=== PATIENT | female | born 1995 | race Caucasian/White ===

== ENCOUNTER 2020-01-21 22:18 | Inpatient (IN) | payer MEDICAID ==
[2020-01-21 22:45] LABS: APPEARANCE,URINE CLOUDY; BILIRUBIN,URINE NEGATIVE (NEGATIVE); COLOR,URINE YELLOW; GLUCOSE, URINE NEGATIVE (NEGATIVE); KETONES,URINE NEGATIVE (NEGATIVE); LEUKOCYTE ESTERASE,URINE LARGE (NEGATIVE); NITRITE,URINE NEGATIVE (NEGATIVE); PROTEIN,URINE 30 mg/dL (NEGATIVE); URINE SPECIFIC GRAVITY 1.019; UROBILINOGEN,URINE NEGATIVE mg/dL (<2.0)
[2020-01-21] MEDS ORDERED: RINGERS SOLUTION,LACTATED 1,000 ML IV PRN (23:05)
[2020-01-21 23:06] LABS: URINE AMPHETAMINES SCREEN NEGATIVE; URINE BARBITURATES SCREEN NEGATIVE; URINE BENZODIAZEPINES SCREEN NEGATIVE; URINE COCAINE SCREEN NEGATIVE; URINE MARIJUANA (THC) SCREEN NEGATIVE; URINE METHADONE SCREEN NEGATIVE; URINE PHENCYCLIDINE SCREEN NEGATIVE
[2020-01-21] MEDS ORDERED: RINGERS SOLUTION,LACTATED 1,000 ML IV ONE (23:34)
--- NOTE | 2020-01-21 23:51 | Admission Physical ---
Datetime Report Generated by CPN: 01/21/2020 23:51 CURRENT ADMISSION Chief Complaint: Uterine Contractions Indication for Induction: Not Applicable Admit Impression : Term, Intrauterine Admit Plan: Admit to Unit ALLERGIES Medication Allergies: No Latex: No Latex Allergies OBSTETRICAL HISTORY EDC: 01/19/2020 00:00 : 1 Para: 0 Gestational Diabetes: No Rh Sensitization: No Incompetent Cervix: No RAINA: No Infertility: No ART Treatment: No Uterine Anomaly: No IUGR: No Hx Previous C/S: No Macrosomia: No Hx Loss/Stillborn: No PIH: No Hx : No Placenta Previa/Abruption: No Depression/PP Depression: No PTL/PROM: No Post Hemorrhage: No Current Procedures: Ultrasound Obstetrical History Comments: G1- current SEE RECORDS Alcohol: No Marijuana : No Cocaine: No Other Illicit Drugs: No Cigarettes: Never Smoker. 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 Surgery: No Heart Disease: No Hosp/Surgery: No Autoimmune Disorder: No Anesthetic Complications: No Kidney Disease: Yes Abnormal Pap Smear: No Neuro/Epilepsy: No Psychiatric Disorders: No Other Medical Diseases: No Hepatitis/Liver Disease: No Significant Family History: No Varicosities/Phlebitis: No Trauma/Violence : No Thyroid Dysfunction: No Medical History Comments: UTI this INFECTIOUS HISTORY Gonorrhea: No Genital Herpes: No Chlamydia: No Tuberculosis: No Syphilis: No Hepatitis: No HIV/AIDS Exposure: No Rash or Viral Illness: No HPV: No PHYSICAL EXAM General: Normal HEENT: Normal Neurologic: Normal Thyroid: Normal Heart: Normal Lungs: Normal Breast: Deferred Back: Normal Abdomen: Normal Genitourinary Exam: Normal Extremities: Normal DTRs: Normal Pelvic Type: Adequate Vital Signs: Reviewed VAGINAL EXAM Dilatation: 3 Effacement: 90 Station: 0 MEMBRANES Pooling: Positive Membranes: Intact FETUS A EGA: 40.2 Monitoring: External US FHR- Baseline: 150 Variability: Minimal - Undetectable to <=5bpm Decelerations: None FHR Category: Category II Presentation: Vertex Admit Comment: No hsv lesions. Will give fluids and see if strip improves. PLANS FOR LABOR AND DELIVERY Labor and Delivery: None Pain Management: Epidural Feeding Preference: Breast Circumcision: Yes INFORMED CONSENT Signature: with User ID: [email or web address]
[2020-01-22] MEDS ORDERED: PENICILLIN G-K 5 MILLION UNIT VIAL ONE ×2 (00:15→03:55)
[2020-01-22] MEDS ORDERED: PENICILLIN G POTASSIUM 5,000,000 UNIT in DEXTROSE 5%-WATER 100 ML IV ONE (00:30)
[2020-01-22 00:33] LABS: HEMATOCRIT 30.6 % (36.0-47.0); HEMOGLOBIN 10.6 g/dL (12.0-15.5); MEAN CORPUSCULAR HEMOGLOBIN 30.3 pg (27.0-33.4); MEAN CORPUSCULAR HGB CONC 34.7 g/dL (32.0-36.0); MEAN CORPUSCULAR VOLUME 87 fl (80-97); PLATELET COUNT 247 10^3/uL (150-450); RED BLOOD COUNT 3.51 10^6/uL (3.72-5.28); RED CELL DISTRIBUTION WIDTH 15.6 % (11.5-14.0); WHITE BLOOD COUNT 5.3 10^3/uL (4.0-10.5)
[2020-01-22] MEDS ORDERED: MISOPROSTOL 0.2 MG TABLET ONE (00:54)
[2020-01-22] MEDS ORDERED: EPHEDRINE SULFATE INJ 50 MG/1 ML AMPULE ONE (00:54)
[2020-01-22] MEDS ORDERED: OXYTOCIN 10 UNIT/ML VIAL ONE (00:54)
[2020-01-22] MEDS ORDERED: FENTANYL/BUPIVACAINE/NS/PF 300 MCG/150 ML RTUINJ EPI ONE (00:55)
[2020-01-22] MEDS ORDERED: LIDOCAINE 1% INJ-PF (10 MG/ML) 30 ML SDV ONE (00:55)
[2020-01-22] MEDS ORDERED: OXYTOCIN/NORMAL SALINE 20 UNIT/1,000 ML RTUINJ ONE (00:55)
[2020-01-22] MEDS ORDERED: BUPIVACAINE HCL 0.25 % INJ/PF (2.5 MG/1 ML) 30 ML VIAL ONE (00:55)
[2020-01-22 00:57] LABS: ABSOLUTE LYMPHOCYTES# (MANUAL) 2.1 10^3/uL (0.5-4.7); ABSOLUTE MONOCYTES # (MANUAL) 0.8 10^3/uL (0.1-1.4); ANISOCYTOSIS 1+; BASOPHILS % (MANUAL) 0 % (0-2); EOSINOPHILS % (MANUAL) 0 % (0-6); LYMPHOCYTES % (MANUAL) 40 % (13-45); MONOCYTES % (MANUAL) 15 % (3-13); PLATELET COMMENT ADEQUATE; SEGMENTED NEUTROPHILS % (MAN) 45 % (42-78); TOTAL CELLS COUNTED 100
[2020-01-22] MEDS: PENICILLIN G POTASSIUM 2,500,000 UNIT in DEXTROSE 5%-WATER 50 ML IV SCH ×2 (04:03→10:14)
[2020-01-22] MEDS ORDERED: PROMETHAZINE HCL 25 MG TABLET PO PRN (05:30)
[2020-01-22] MEDS ORDERED: DIBUCAINE 1% OINTMENT 28 GM TP PRN (05:30)
[2020-01-22] MEDS ORDERED: BENZOCAINE/MENTHOL AEROSOL SPRAY 56 ML TOP PRN (05:30)
[2020-01-22] MEDS ORDERED: MAGNESIUM HYDROXIDE SUSP 30 ML UDCUP PO PRN (05:30)
[2020-01-22] MEDS ORDERED: ACETAMINOPHEN WITH CODEINE #3 TABLET PO PRN ×2 (05:30)
[2020-01-22] MEDS ORDERED: ACETAMINOPHEN 650 MG SUPP.RECT PR PRN (05:30)
[2020-01-22] MEDS ORDERED: GLYCERIN/WITCH HAZEL LEAF 1 EACH MED..WIPE TP PRN (05:30)
[2020-01-22] MEDS ORDERED: DIPHENHYDRAMINE HCL 25 MG CAPSULE PO PRN (05:30)
[2020-01-22] MEDS ORDERED: PROMETHAZINE HCL 25 MG SUPP.RECT PR PRN (05:30)
[2020-01-22] MEDS ORDERED: PROMETHAZINE HCL INJ 25 MG/1 ML VIAL IV PRN (05:30)
[2020-01-22] MEDS ORDERED: NA PHOS,M-B/NA PHOS,DI-BA (ADULT) 133 ML ENEMA PR PRN (05:30)
[2020-01-22] MEDS ORDERED: DIPH/PERTUSS(ACELL)/TETANUS VAC/PF 0.5 ML SYR (>=10YO) IM PRN (05:30)
[2020-01-22] MEDS ORDERED: ZOLPIDEM TARTRATE 5 MG TABLET PO PRN (05:30)
[2020-01-22] MEDS ORDERED: OXYTOCIN/NORMAL SALINE 20 UNIT/1,000 ML RTUINJ IV PRN (05:30)
[2020-01-22] MEDS ORDERED: MEASLES,MUMPS&RUBELLA VACC/PF 0.5 ML VIAL SUBCUT PRN (05:30)
[2020-01-22] MEDS ORDERED: PSEUDOEPHEDRINE HCL 30 MG TABLET PO PRN (05:30)
[2020-01-22] MEDS ORDERED: AMPICILLIN SOD/SULBACTAM 3 GM VIAL IV ONE (06:09)
[2020-01-22] MEDS ORDERED: AMPICILLIN SOD/SULBACTAM 3 GM VIAL ONE (06:13)
--- NOTE | 2020-01-22 07:19 | Delivery Summary ---
Del Sum A-C Datetime Report Generated by CPN: 01/22/2020 07:18 DELIVERY PERSONNEL DELIVERY PERSONNEL: [id number] Delivery Doctor:: Bang Mayes MD Labor and Delivery Nurse:: Latanya Fisher RNpremium representative Nurse:: Eva Sarah RN Nursery Nurse:: Vanna Briones RN Nursery Nurse:: Ritika Oliva RN Burring Wheel Operator/ACCOUNTANT BUDGET: Shruthi Pierre, ST MATERNAL INFORMATION Delivery Anesthesia: Epidural Medications After Delivery: Pitocin Bolus-Please Comment; Pitocin Drip 20 Units/1000ml NSS Estimated Blood Loss (ml): 250 Delivery QBL: 100 Maternal Complications: None LABOR SUMMARY EDC: 01/19/2020 00:00 No. Babies in Womb: 1 Attempted: No Labor Anesthesia: Epidural LABOR INFORMATION Reason for Induction: Not Applicable Onset of Labor: 01/22/2020 00:37 Complete Dilatation: 01/22/2020 04:06 Oxytocin: N/A Group B Beta Strep: positive Antibiotics # of Doses: 2 Antibiotics Time of Last Dose: 0401 Name of Antibiotic Given: PCN Steroids Given: None Reason Steroids Not Administered: Not Applicable MEMBRANES Membranes Rupture Method: Artificial Rupture of Membranes: 01/22/2020 03:25 Length of Rupture (hr): 1.68 Amniotic Fluid Color: Clear Amniotic Fluid Amount: Small Amniotic Fluid Odor: Normal STAGES OF LABOR Stage 1 hr: 3 Stage 1 min: 29 Stage 2 hr: 1 Stage 2 min: 0 Stage 3 hr: 0 Stage 3 min: 5 Total Time in Labor hr: 4 Total Time in Labor min: 34 VAGINAL DELIVERY Episiotomy: None Laceration #1: Perineal Laceration Extension #1: Second Degree Laceration #2: Vaginal Laceration Extension #2: N/A Laceration Repair: Yes Laceration Repair Note: Perineal laceration repaired with 3-0 chromic in usual fashion. Sponge Count Correct: Vaginal Sweep Performed Sharps Count Correct: Yes CSECTION DELIVERY Primary Indication: N/A Secondary Indication: N/A CSection Incidence: N/A Labor: N/A Elective: N/A CSection Incision: N/A BABY A INFORMATION Delivery Date/Time: 01/22/2020 05:06 Method of Delivery: Vaginal Nurse Controlled Delivery: No Born in Route : No : N/A Forceps: N/A Vacuum Extraction: Failed Shoulder Dystocia : No ASSISTED DELIVERY BABY A Station Vacuum/Forcep Apply: +1 Vacuum/Forceps Comment: attempted vac to shorten her pushing but I could not obtain a good seal. The heart rate had improved so I abandoned the kiwi. PRESENTATION/POSITION BABY A Presentation: Cephalic Cephalic Presentation: Vertex Vertex Position: Left Occipital Anterior Breech Presentation: N/A PLACENTA INFORMATION BABY A Placenta Delivery Time : 01/22/2020 05:11 Placenta Method of Delivery: Spontaneous Placenta Status: Delivered SCORES BABY A Heart Rate 1 min: >100 bpm Resp Effort 1 min: Slow, Irregular Reflex Irritability 1 min: Grimace Muscle Tone 1 min: Some Flexion of Extremities Color 1 min: Body [place], Extremities Blue Resuscitation Effort 1 min: Tactile Stimulation; PPV/NCPAP SCORE 1 MIN: 6 Heart Rate 5 min: >100 bpm Resp Effort 5 min: Good Cry Reflex Irritability 5 min: Cough or Sneeze or Pulls Away Muscle Tone 5 min: Active Motion Color 5 min: Body [place], Extremities Blue SCORE 5 MIN: 9 INFORMATION BABY A Gestational Age at Delivery: 40.3 Gestational Status: Full Term- 39- 40.6 Weeks Outcome : Liveborn Infant Condition : Stable Sex: Female IDENTIFICATION BABY A Infant Verification Date/Time: 01/22/2020 05:42 ID Band Number: [id number] Mother's Name Verified: Yes RN Verifying : Silvio Peter RN and Scotty Fisher RN WEIGHT/LENGTH BABY A Infant Birthweight (gm): 3399 Weight (lb): 7 Weight (oz): 8 Length (in): 19.75 Infant Length (cm): 50.17 CORD INFORMATION BABY A No. Cord Vessels: 3 Nuchal Cord : N/A Cord Blood Taken: Yes-For Storage (Mom's Blood type +) Suction: Mouth ASSESSMENT BABY A Infant Complications: Extended Tachycardia; Multiple Late Decels; Shoulder Dystocia Physical Findings at Delivery: Caput Succedaneum; Molding of the Head Respirations: Appears Normal Skin to Skin: Yes Collections Assistant/ALS Called : No Transferred To: Remains with Mother BABY B INFORMATION : N/A SIGNATURES Signature: with User ID: [email or web address]
[2020-01-22] MEDS: IBUPROFEN 800 MG TABLET PO SCH ×3 (10:14→21:06)
[2020-01-22] MEDS: FERROUS SULFATE 325 MG TABLET PO SCH ×2 (10:37→17:26)
[2020-01-22] MEDS: SENNOSIDES/DOCUSATE 8.6-50 MG 1 EACH TABLET PO SCH (10:37)
[2020-01-22] MEDS: PRENATAL VITAMIN W DHA CAPSULE PO SCH (10:37)
[2020-01-22] MEDS: DOCUSATE SODIUM 100 MG CAPSULE PO SCH ×2 (10:37→17:26)
[2020-01-22] MEDS: FAMOTIDINE 20 MG TABLET PO SCH ×2 (10:37→21:07)
[2020-01-22] MEDS ORDERED: AMPICILLIN SOD/SULBACTAM 3 GM VIAL IV SCH (12:45)
[2020-01-22] MEDS: AMPICILLIN SODIUM/SULBACTAM NA 3 GM in NORMAL SALINE 100 ML IV SCH ×2 (16:45→21:07)
[2020-01-23] MEDS: AMPICILLIN SODIUM/SULBACTAM NA 3 GM in NORMAL SALINE 100 ML IV SCH ×2 (03:43→09:54)
[2020-01-23] MEDS: IBUPROFEN 800 MG TABLET PO SCH ×3 (05:02→22:17)
[2020-01-23 07:08] LABS: ABSOLUTE EOSINOPHILS # (AUTO) 0.3 10^3/uL (0.0-0.6); ABSOLUTE LYMPHOCYTES (AUTO) 3.4 10^3/uL (0.5-4.7); ABSOLUTE MONOCYTES (AUTO) 1.9 10^3/uL (0.1-1.4); ABSOLUTE NEUT (AUTO) 8.8 10^3/uL (1.7-8.2); BASOPHILS % (AUTO) 0.2 % (0-2); HEMATOCRIT 28.2 % (36.0-47.0); HEMOGLOBIN 9.9 g/dL (12.0-15.5); LYMPHOCYTES % (AUTO) 23.6 % (13-45); MEAN CORPUSCULAR HEMOGLOBIN 30.8 pg (27.0-33.4); MEAN CORPUSCULAR HGB CONC 35.2 g/dL (32.0-36.0); MEAN CORPUSCULAR VOLUME 88 fl (80-97); MONOCYTES % (AUTO) 12.9 % (3-13); PLATELET COUNT 237 10^3/uL (150-450); RED BLOOD COUNT 3.22 10^6/uL (3.72-5.28); RED CELL DISTRIBUTION WIDTH 16.1 % (11.5-14.0); SEGMENTED NEUTROPHILS % (AUTO) 61.3 % (42-78); TOTAL CELLS COUNTED % (AUTO) 100 %; WHITE BLOOD COUNT 14.4 10^3/uL (4.0-10.5)
[2020-01-23] MEDS: SENNOSIDES/DOCUSATE 8.6-50 MG 1 EACH TABLET PO SCH (09:54)
[2020-01-23] MEDS: FAMOTIDINE 20 MG TABLET PO SCH ×2 (09:54→22:17)
[2020-01-23] MEDS: PRENATAL VITAMIN W DHA CAPSULE PO SCH (09:54)
[2020-01-23] MEDS: DOCUSATE SODIUM 100 MG CAPSULE PO SCH ×2 (09:54→17:12)
[2020-01-23] MEDS: FERROUS SULFATE 325 MG TABLET PO SCH ×2 (09:54→17:12)
--- NOTE | 2020-01-23 10:44 | PDOC PROGRESS REPORT ---
Subjective-OB Progress Note for:: 01/23/20 - PP Day #1, doing well, denies fever or chills. s/p fever in labor, tx'd w/ Unasyn, getting 3doses. O+, Rubella immune, , UOB, voiding Physical Exam (OB) Vital Signs: Temp Pulse Resp BP Pulse Ox 98.1 F 80 20 96/53 L 100 01/23/20 08:00 01/23/20 08:00 01/23/20 08:00 01/23/20 08:00 01/23/20 08:00 Intake & Output 01/22/20 01/23/20 01/24/20 06:59 06:59 06:59 Intake Total 1939 Balance 1939 Weight 67.8 kg - General General Appearance: Appears well, Alert In distress: None - PIH/Pre-Eclampsia Headache: Absent Epigastric Pain: No Visual Changes: No - Lochia Lochia Amount: Small 10-25 ml Lochia Color: Rubra/Red - Abdomen Description: Soft, Round Hernia Present: No Fundal Description: Firm, Midline Fundal Height: u/u - u/2 - Respiratory Respiratory Status: No respiratory distress - Abdominal Distension: No distension Tenderness: Nontender - Genitourinary Genitourinary Note: voiding - Extremities Upper extremity: Normal inspection Lower extremities: Normal inspection - Neurological Cognition: Normal Orientation: AAOx4 - Psychological Associated symptoms: Normal affect, Normal mood - Skin Skin Temperature: Warm Skin Moisture: Dry Objective-Diagnostic Laboratory: 01/23/20 06:44 01/23/20 06:44 WBC 14.4 H D RBC 3.22 L Hgb 9.9 L Hct 28.2 L MCV 88 MCH 30.8 MCHC 35.2 RDW 16.1 H Plt Count 237 Seg Neutrophils % 61.3 Assessment and Plan(PN) - Assessment and Plan (1) (normal spontaneous vaginal delivery) Is this a current diagnosis for this admission?: Yes (2) Chorioamnionitis Qualifiers: Fetus number: single or unspecified fetus Trimester: third trimester Qualified Code(s): O41.1230 - Chorioamnionitis, third trimester, not applicable or unspecified Is this a current diagnosis for this admission?: Yes Plan:: Routine PP orders, ambulation encouraged. Continue w/ Unasyn x 3 doses then d/c - Time Spent with Patient Time with patient: Less than 15 minutes Medications reviewed and adjusted accordingly: Yes - Disposition Anticipated Discharge: Home Within: within 24 hours
[2020-01-24] MEDS: IBUPROFEN 800 MG TABLET PO SCH (05:36)
[2020-01-24] MEDS: SENNOSIDES/DOCUSATE 8.6-50 MG 1 EACH TABLET PO SCH (09:28)
[2020-01-24] MEDS: DOCUSATE SODIUM 100 MG CAPSULE PO SCH (09:28)
[2020-01-24] MEDS: FERROUS SULFATE 325 MG TABLET PO SCH (09:28)
[2020-01-24] MEDS: FAMOTIDINE 20 MG TABLET PO SCH (09:28)
[2020-01-24] MEDS: PRENATAL VITAMIN W DHA CAPSULE PO SCH (09:28)
--- NOTE | 2020-01-24 14:14 | PDOC DISCHARGE SUMMARY ---
Impression - Admit/DC Date/PCP Admission Date/Primary Care Provider: 01/22/20 00:07 NADIRA COLON MD Discharge Date: 01/24/20 - Discharge Diagnosis (1) (normal spontaneous vaginal delivery) Is this a current diagnosis for this admission?: Yes (2) Chorioamnionitis Is this a current diagnosis for this admission?: Yes (3) Anemia complicating , third trimester Is this a current diagnosis for this admission?: Yes (4) Perineal laceration during delivery Is this a current diagnosis for this admission?: Yes - Additional Information Resuscitation Status: Full Code Discharge Diet: As Tolerated, Regular Discharge Activity: Activity As Tolerated, Balance Activity w/Rest, No Lifting Over 10 Pounds, Pelvic Rest, No tub bath, Walk Frequently Referrals: NADIRA COLON MD [Primary Care Provider] - Prescriptions: Ibuprofen [Motrin 800 mg Tablet] 800 mg PO Q8HP PRN #20 tablet PRN Reason: Abdominal Cramping Docusate Sodium [Colace 100 mg Capsule] 100 mg PO BID #60 capsule Ferrous Sulfate [Feosol 325 mg Tablet] 325 mg PO BID #60 tablet Home Medications: Prenat 115/Iron Fum/Folic/Dss [ 19 Tablet] 1 tab PO DAILY 01/22/20 Valacyclovir HCl [Valtrex 500 mg Tablet] 500 mg PO DAILY 01/22/20 Docusate Sodium [Colace 100 mg Capsule] 100 mg PO BID #60 capsule 01/24/20 Ferrous Sulfate [Feosol 325 mg Tablet] 325 mg PO BID #60 tablet 01/24/20 Ibuprofen [Motrin 800 mg Tablet] 800 mg PO Q8HP PRN #20 tablet 01/24/20 Results Laboratory Results: WBC 14.4 10^3/uL (4.0-10.5) H D 01/23/20 06:44 RBC 3.22 10^6/uL (3.72-5.28) L 01/23/20 06:44 Hgb 9.9 g/dL (12.0-15.5) L 01/23/20 06:44 Hct 28.2 % (36.0-47.0) L 01/23/20 06:44 MCV 88 fl (80-97) 01/23/20 06:44 MCH 30.8 pg (27.0-33.4) 01/23/20 06:44 MCHC 35.2 g/dL (32.0-36.0) 01/23/20 06:44 RDW 16.1 % (11.5-14.0) H 01/23/20 06:44 Plt Count 237 10^3/uL (150-450) 01/23/20 06:44 Lymph % (Auto) 23.6 % (13-45) 01/23/20 06:44 [place] % (Auto) 12.9 % (3-13) 01/23/20 06:44 Eos % (Auto) 2.0 % (0-6) 01/23/20 06:44 Baso % (Auto) 0.2 % (0-2) 01/23/20 06:44 Absolute Neuts (auto) 8.8 10^3/uL (1.7-8.2) H 01/23/20 06:44 Absolute Lymphs (auto) 3.4 10^3/uL (0.5-4.7) 01/23/20 06:44 Absolute Monos (auto) 1.9 10^3/uL (0.1-1.4) H 01/23/20 06:44 Absolute Eos (auto) 0.3 10^3/uL (0.0-0.6) 01/23/20 06:44 Absolute Basos (auto) 0.0 10^3/uL (0.0-0.2) 01/23/20 06:44 Total Counted 100 01/22/20 00:06 Seg Neutrophils % 61.3 % (42-78) 01/23/20 06:44 Seg Neuts % (Manual) 45 % (42-78) 01/22/20 00:06 Lymphocytes % (Manual) 40 % (13-45) 01/22/20 00:06 Monocytes % (Manual) 15 % (3-13) H 01/22/20 00:06 Eosinophils % (Manual) 0 % (0-6) 01/22/20 00:06 Basophils % (Manual) 0 % (0-2) 01/22/20 00:06 Abs Neuts (Manual) 2.4 10^3/uL (1.7-8.2) 01/22/20 00:06 Abs Lymphs (Manual) 2.1 10^3/uL (0.5-4.7) 01/22/20 00:06 Abs Monocytes (Manual) 0.8 10^3/uL (0.1-1.4) 01/22/20 00:06 Absolute Eos (Manual) 0.0 10^3/uL (0.0-0.6) 01/22/20 00:06 Abs Basophils (Manual) 0.0 10^3/uL (0.0-0.2) 01/22/20 00:06 Platelet Comment ADEQUATE 01/22/20 00:06 Anisocytosis 1+ 01/22/20 00:06 Urine Color YELLOW 01/21/20 22:30 Urine Appearance CLOUDY 01/21/20 22:30 Urine pH 7.0 (5.0-9.0) 01/21/20 22:30 Ur Specific [place] 1.019 01/21/20 22:30 Urine Protein 30 mg/dL (NEGATIVE) H 01/21/20 22:30 Urine Glucose (UA) NEGATIVE mg/dL (NEGATIVE) 01/21/20 22:30 Urine Ketones NEGATIVE mg/dL (NEGATIVE) 01/21/20 22:30 Urine Blood LARGE (NEGATIVE) H 01/21/20 22:30 Urine Nitrite NEGATIVE (NEGATIVE) 01/21/20 22:30 Urine Bilirubin NEGATIVE (NEGATIVE) 01/21/20 22:30 Urine Urobilinogen NEGATIVE mg/dL (<2.0) 01/21/20 22:30 Ur Leukocyte Esterase LARGE (NEGATIVE) H 01/21/20 22:30 Urine Ascorbic Acid NEGATIVE (NEGATIVE) 01/21/20 22:30 Urine Opiates Screen NEGATIVE 01/21/20 22:30 Urine Methadone Screen NEGATIVE 01/21/20 22:30 Ur Barbiturates Screen NEGATIVE 01/21/20 22:30 Ur Phencyclidine Scrn NEGATIVE 01/21/20 22:30 Ur Amphetamines Screen NEGATIVE 01/21/20 22:30 U Benzodiazepines Scrn NEGATIVE 01/21/20 22:30 Urine Cocaine Screen NEGATIVE 01/21/20 22:30 U Marijuana (THC) Screen NEGATIVE 01/21/20 22:30 RPR NONREACTIVE (NONREACTIVE) 01/22/20 00:06 Blood Type O POSITIVE 01/22/20 00:06 Antibody Screen NEGATIVE 01/22/20 00:06
[2020-01-24 14:22] VITALS: BP 96/53
== END 2020-01-24 15:14 | disposition home or self-care (01) | DRG 805 ==
LOC: LC 22:18 → LR 01-22 00:07 → 2S 01-22 08:00
PROVIDERS: ADMIT Obstetrics & Gynecology; ATTEND Obstetrics & Gynecology
PROC: 10E0XZZ Delivery of Products of Conception, External Approach (ICD-10-PCS; principal; 2020-01-22)
DX: O99.824 Streptococcus B carrier state complicating childbirth (principal); O41.1230 Chorioamnionitis, third trimester, not applicable or unspecified; Z37.0 Single live birth; O70.1 Second degree perineal laceration during delivery; O76 Abnormality in fetal heart rate and rhythm complicating labor and delivery; O99.02 Anemia complicating childbirth; D64.9 Anemia, unspecified; O66.0 Obstructed labor due to shoulder dystocia; O66.5 Attempted application of vacuum extractor and forceps; Z3A.40 40 weeks gestation of pregnancy
CPT/HCPCS: 36415; 80307; 81005; 85025; 86592; 86850; 86900; 86901; 94760; J0295; J2540; J2590; J3010; J3490; J7050; J7060